=== PATIENT | male | born 1940 | race Asian ===

== ENCOUNTER 2017-07-09 19:17 | Emergency (ER) | payer SELFPAY ==
[2017-07-09 20:11] LABS: BASOPHIL % 0.5 % (0-2); PLATELET COUNT 215 x10^3mcL (130-400); RED CELL DISTRIBUTION WIDTH 14.1 % (11.5-14.5)
[2017-07-09 20:15] LABS: CALCIUM 8.7 mg/dL (8.5-10.1); CARBON DIOXIDE 25.2 mmol/L (21-32); CHLORIDE SERUM 103 mmol/L (98-107); GLUCOSE SERUM 108 mg/dL (74-106); POTASSIUM SERUM 3.7 mmol/L (3.5-5.1); SODIUM SERUM 139 mmol/L (136-145)
[2017-07-09 20:22] LABS: ALBUMIN 3.7 g/dL (3.4-5.0); ALKALINE PHOSPHATASE 68 U/L (46-116); ALT/SGPT 19 U/L (16-63); AST/SGOT 17 U/L (15-37); BILIRUBIN TOTAL 0.4 mg/dL (0.20-1.00); CHOLESTEROL 164 mg/dL (<200); PHOSPHOROUS 3.4 mg/dL (2.5-4.9)
[2017-07-09 20:23] LABS: HDL CHOLESTEROL 34 mg/dL (40-60)
[2017-07-09 20:32] VITALS: BP 159/83
== END 2017-07-09 20:32 | disposition left against medical advice (07) ==
LOC: ED 19:17
PROVIDERS: Emergency Medicine
DX: R42 Dizziness and giddiness (principal); Z86.73 Personal history of transient ischemic attack (TIA), and cerebral infarction without residual deficits; Z53.29 Procedure and treatment not carried out because of patient's decision for other reasons
CPT/HCPCS: 36415; 83880; J2550